=== PATIENT | male | born 2000 | race Caucasian/White ===

== ENCOUNTER 2021-04-07 20:51 | Observation (INO) | payer OTHER ==
[2021-04-07] MEDS ORDERED: Ondansetron 4 MG/2 ML SDV IVPUSH ONE ×2 (21:05→21:47)
[2021-04-07] MEDS ORDERED: HYDROmorphone 0.5 MG/0.5 ML Syringe IVPUSH ONE ×2 (21:07→21:47)
--- NOTE | 2021-04-07 22:18 | CRLCT ---
For Patients: As a result of the Century Cures Act, medical imaging exams and procedure reports are released immediately into your electronic medical record. You may view this report before your referring provider. If you have questions, please contact your health care provider. Indication: Trauma Technique: Noncontrast head CT Comparison: No comparison Findings: Axial noncontrast images through the brain parenchyma demonstrates no acute intracranial hemorrhage or mass. No midline shift. No abnormal extra-axial air or collections are seen. Paranasal sinuses, mastoid air cells skull and scalp appear unremarkable Impression: No acute intracranial hemorrhage or mass. Please note that all CT scans at this facility use dose modulation, iterative reconstruction, and/or weight-based dosing when appropriate to reduce radiation dose to as low as reasonably achievable. Dictated by Katherine Babcock MD @ 04/07/2021 10:16:[address] Katherine Babcock @ Apr 07 2021 10:16PM
--- NOTE | 2021-04-07 22:20 | CRLCT ---
For Patients: As a result of the Cures Act, medical imaging exams and procedure reports are released immediately into your electronic medical record. You may view this report before your referring provider. If you have questions, please contact your health care provider. Indication: Trauma Technique: Spine CT scan Comparison: No comparison Findings: Normal height and alignment of the cervical vertebral bodies. Lateral masses of C1 align with the articular processes of C2. No acute vertebral body fracture. The prevertebral soft tissues are within normal limits. Impression: No acute vertebral body fracture or traumatic malalignment. Please note that all CT scans at this facility use dose modulation, iterative reconstruction, and/or weight-based dosing when appropriate to reduce radiation dose to as low as reasonably achievable. Dictated by Katherine Babcock MD @ 04/07/2021 10:18:[address] Katherine Babcock @ Apr 07 2021 10:18PM
[2021-04-07] MEDS ORDERED: Methocarbamol 500 MG Tab PO ONE (22:38)
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
[2021-04-08] MEDS ORDERED: Ibuprofen 600 MG Tab PO PRN (00:12)
[2021-04-08] MEDS ORDERED: oxyCODONE 5 MG Tab PO PRN (00:12)
[2021-04-08] MEDS ORDERED: LORazepam 2 MG/ML SDV IVPUSH PRN (00:12)
[2021-04-08] MEDS ORDERED: Ondansetron 4 MG/2 ML SDV IV PRN (00:12)
[2021-04-08] MEDS ORDERED: Ondansetron 4 MG Tab.DIS PO PRN (00:12)
[2021-04-08] MEDS ORDERED: Acetaminophen 325 MG Tab PO PRN (00:12)
[2021-04-08] MEDS: Potassium Chloride 20 MEQ Tab.ER PO ONE ×2 (00:29→00:38)
[2021-04-08] MEDS ORDERED: Potassium Chloride 20 MEQ, Lidocaine 1% 2 ML in Sodium Chloride 0.9% 100 ML IV SCH (00:45)
[2021-04-08] MEDS ORDERED: Potassium Chloride 20 MEQ in Premix Bag 1 BAG IV ONE ×2 (01:00→03:00)
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
== END 2021-04-08 09:30 | disposition home or self-care (01) ==
LOC: JP.ED 20:51 → JP.ICU 23:21
PROVIDERS: ADMIT Internal Medicine; ATTEND Internal Medicine
DX: S09.90XA Unspecified injury of head, initial encounter (principal); M54.2 Cervicalgia; G43.909 Migraine, unspecified, not intractable, without status migrainosus; R11.2 Nausea with vomiting, unspecified; F10.929 Alcohol use, unspecified with intoxication, unspecified; E87.6 Hypokalemia; W18.39XA Other fall on same level, initial encounter
CPT/HCPCS: 36415; 70450; 72125; 80048; 80053; 80307; 81001; 85025; 85610; 85730; 96365; 96366; 96375; 96376; 99285; A9270; G0378; J1170; J2405; J3480; 96374